=== PATIENT | male | born 1950 | race Caucasian/White ===

== ENCOUNTER → 2019-08-10 | Outpatient (CLI) | payer MEDICARE ==
[~2019-08-10] MED LIST: ACET500 PO; AMLO5 PO; ASPI325 PO; HYDACE5 PO; HYDCHL25 PO; IBUP800 PO; METO50 PO; OXYC5 PO; Simvastatin20 MG PO; Zestril40 MG PO
== END | disposition home or self-care (01) ==
LOC: LAB SHORT 13:14 → LAB 13:14
DX: B99.9 Unspecified infectious disease (principal)
CPT/HCPCS: 87070; 87075; 87076; 87205

== ENCOUNTER → 2024-05-14 | Outpatient (CLI) | payer MEDICARE ==
[~2024-05-14] MED LIST changes: +Acetaminophen325 M1 PO; +CIPR500 PO; +DOCU100 PO; +FERSU300 PO; +NERVE RENEW PO; +PROTONIX4010 PO; +VISBIOME 112.51 EACH PO; +Vitamin C500 M3 PO
[2024-05-14 18:29] LABS: Adenovirus F 40/41 Not Detected (NOT DETECT); Astrovirus Not Detected (NOT DETECT); Campylobacter Sp Not Detected (NOT DETECT); Cryptosporidium Not Detected (NOT DETECT); Cyclospora Cayetanensis Not Detected (NOT DETECT); E. Coli O157 Not Detected (NOT DETECT); Entamoeba Histolytica Not Detected (NOT DETECT); Enteroaggregative E. coli-EAEC Not Detected (NOT DETECT); Enteropathogenic E. coli-EPEC Not Detected (NOT DETECT); Enterotoxigenic E. coli-ETEC Not Detected (NOT DETECT); Giardia Lamblia Not Detected (NOT DETECT); Norovirus GI/GII Not Detected (NOT DETECT); Plesiomonas Shigelloides Not Detected (NOT DETECT); Rotavirus A Not Detected (NOT DETECT); Salmonella Sp Not Detected (NOT DETECT); Sapovirus Not Detected (NOT DETECT); Shiga Toxin-prod E. coli-STEC Not Detected (NOT DETECT); Shigella/Enteroin E. coli-EIEC Not Detected (NOT DETECT); Vibrio Cholerae Not Detected (NOT DETECT); Vibrio Sp Not Detected (NOT DETECT); Yersinia Enterocolitica Not Detected (NOT DETECT)
== END | disposition home or self-care (01) ==
LOC: LAB SHORT 15:13 → LAB 15:13
PROVIDERS: Nurse Practitioner Family
DX: R19.7 Diarrhea, unspecified (principal)
CPT/HCPCS: 87507

== ENCOUNTER → 2024-09-09 | Outpatient (CLI) | payer MEDICARE ==
[~2024-09-09] MED LIST changes: +MULVITA; +PREG25; +TAMS.4ER
[2024-09-09 16:44] LABS: BASOPHILS ABSOLUTE AUTO 0.09 K/mm3 (0.00-0.23); BASOPHILS PERCENT AUTO 1 % (0-2); EOSINOPHILS ABSOLUTE AUTO 1.24 K/mm3 (0.00-0.68); EOSINOPHILS PERCENT AUTO 13 % (0-6); Hematocrit 30.9 % (37.0-53.0); Hemoglobin 9.8 g/dL (13.5-17.5); IMMATURE GRAN ABSOLUTE AUTO 0.25 K/mm3 (0.00-0.10); IMMATURE GRAN PERCENT AUTO 3 % (0-1); LYMPHOCYTES ABSOLUTE AUTO 1.68 K/mm3 (0.84-5.20); LYMPHOCYTES PERCENT AUTO 18 % (21-46); MONOCYTES ABSOLUTE AUTO 0.85 K/mm3 (0.16-1.47); MONOCYTES PERCENT AUTO 9 % (4-13); Mean Corpuscular HGB Conc 31.7 g/dL (31.5-36.5); Mean Corpuscular Volume 101 fL (80-100); Mean Platelet Volume 10.7 fL (9.1-12.4); NEUTROPHILS ABSOLUTE AUTO 5.21 K/mm3 (1.96-9.15); NEUTROPHILS PERCENT AUTO 56 % (41-73); Platelet Count 289 K/mm3 (150-400); RDW Coefficient Variation 14.3 % (11.7-14.2); RDW Standard Deviation 52.1 fL (35.1-46.3); Red Blood Cell Count 3.06 M/mm3 (4.30-5.90); White Blood Cell Count 9.32 K/mm3 (4.00-11.30)
[2024-09-09 17:41] LABS: Percent Saturation 69.9 % (20.0-50.0)
== END | disposition home or self-care (01) ==
LOC: LAB 15:44 → LAB SHORT 15:44
PROVIDERS: Internal Medicine Hematology & Oncology
DX: E61.1 Iron deficiency (principal)
CPT/HCPCS: 82728; 83540; 83550; 85025

== ENCOUNTER 2024-11-04 11:30 | Inpatient (IN) | payer MEDICARE ==
[~2024-11-04] VITALS: Ht 180.3 cm; Wt 53.5 kg
[~2024-11-04 11:30] MED LIST changes: -MULVITA; +MULVITA PO; -PREG25; +PREG25 PO; -TAMS.4ER; +TAMS.4ER PO
[2024-11-04] MEDS ORDERED: NS 1,000 ML IV SCH ×2 (11:50→16:20)
[2024-11-04 13:00] LABS: BASOPHILS ABSOLUTE AUTO 0.04 K/mm3 (0.00-0.23); BASOPHILS PERCENT AUTO 1 % (0-2); Hematocrit 26.8 % (37.0-53.0); Hemoglobin 9.1 g/dL (13.5-17.5); LYMPHOCYTES ABSOLUTE AUTO 0.26 K/mm3 (0.84-5.20); LYMPHOCYTES PERCENT AUTO 4 % (21-46); MONOCYTES ABSOLUTE AUTO 0.37 K/mm3 (0.16-1.47); MONOCYTES PERCENT AUTO 5 % (4-13); Mean Corpuscular HGB 34.5 pg (26.0-34.0); Mean Corpuscular Volume 102 fL (80-100); Mean Platelet Volume 10.8 fL (9.1-12.4); NRBC ABSOLUTE 0.03 K/mm3 (0.00-0.02); NRBC Auto 0.4 /100 WBC (0.0-0.2); Platelet Count 246 K/mm3 (150-400); RDW Coefficient Variation 15.2 % (11.7-14.2); Red Blood Cell Count 2.64 M/mm3 (4.30-5.90); White Blood Cell Count 6.88 K/mm3 (4.00-11.30)
[2024-11-04 13:04] LABS: EOSINOPHILS ABSOLUTE AUTO 0.72 K/mm3 (0.00-0.68); EOSINOPHILS PERCENT AUTO 11 % (0-6); IMMATURE GRAN ABSOLUTE AUTO 0.19 K/mm3 (0.00-0.10); IMMATURE GRAN PERCENT AUTO 3 % (0-1); NEUTROPHILS PERCENT AUTO 77 % (41-73)
[2024-11-04 13:29] LABS: Magnesium, Blood 2.3 mg/dL (1.6-2.4)
[2024-11-04 13:43] LABS: Albumin, Blood 2.6 g/dL (3.4-5.0); Albumin/Globulin Ratio 0.7 (0.8-1.8); Bilirubin, Total 0.4 mg/dL (0.1-1.0); Calcium, Blood 13.8 mg/dL (8.5-10.1); Creatinine, Blood 2.04 mg/dL (0.60-1.20); Globulin, Blood 3.8 g/dL (2.2-4.0); Potassium, Blood 4.1 mmol/L (3.5-5.5); Total Protein, Blood 6.4 g/dL (6.4-8.2)
[2024-11-04] MEDS ORDERED: NS 1,000 ML IV ONE (15:46)
[2024-11-04] MEDS ORDERED: FLU VACC TS2024-25(6MOS UP)/PF 45 MCG/0.5 ML SYRINGE IM ONE (16:20)
[2024-11-04] MEDS ORDERED: Calcium Carbonate 500 MG Tab Chew PO PRN (17:35)
[2024-11-04] MEDS ORDERED: Ondansetron HCl 2 MG / ML 2ML Vial IV PRN (17:35)
[2024-11-04] MEDS ORDERED: TraMADol HCl 50 MG Tab PO PRN (17:35)
[2024-11-04 17:55] VITALS: BP 150/65
[2024-11-04] MEDS ORDERED: Polyethylene Glycol 3350 17 gm PO SCH (18:00)
[2024-11-04] MEDS ORDERED: Omeprazole 20 MG CapCR PO ONE (18:20)
--- NOTE | 2024-11-04 18:23 | NUR ---
NOTIFIED DR. ONEIL OF STAGE 2 PRESSURE ULCER TO COCCYX, PT C/O HEARTBURN, AND PT HAS CHRONIC INDWELLING DAVIS CATHETER MANAGED BY [facility]. PER PT HE DOES NOT HAVE SYMPTOMS OF BURNING, ABD PAIN, URGENCY, OR FEELING LIKE HE HAS A UTI. URINE IN BAG IS CLEAR YELLOW. PT DOES REPORT HI WAS TAUGHT HOW TO FLUSH CATHETER IF IT GETS CLOGGED. PER DR. OLIVEIRA, PLACE WOUND CARE ORDERS, OK TO CHANGE DAVIS CATHETER AND GIVE OMEPRAZOLE 40 MG PO NOW. ORDERS PROCESSED.
--- NOTE | 2024-11-04 18:49 | NUR ---
2 RN SKIN CHECK COMPLETED WITH LAURA BAEZ. SORE FOUND TO L INNER FOOT ON BALL OF FOOT. PT REPORTS IT IS FROM HIS SHOES. IT IS 0.5 CM BY 0.5 CM. NO DRAINAGE. WHITE PIN HEAD APPEARANCE SURROUNDED BY PINK SKIN. VIRGEN. STAGE TWO PRESSURE SORE TO COCCYX CLEANSED WITH WOUND CLEANSER AND PATTED DRY. PHOTOS TAKEN OF WOUNDS. APPLIED BARRIER CREAM TO COCCYX AND APPLIED MEPILEX. PT REPOSITIONED TO R SIDE WITH PILLOW. PT REPORTS HE HAS DIARRHEA AND REFUSED THE MIRALAX. OMEPRAZOLE GIVEN FOR HEARTBURN. PT ORIENTED TO CALL LIGHT, ROOM, FALL PRECAUTIONS. BED ALARM SET AND BED IN LOW POSITION.
[2024-11-04 19:10] VITALS: BP 149/73
[2024-11-04] MEDS ORDERED: Colace100 MG PO (19:51)
[2024-11-04] MEDS ORDERED: PANT40 PO (19:52)
[2024-11-04 22:54] LABS: Source, Urine Foley catheter
[2024-11-04 23:40] LABS: Bilirubin, Urine Neg (Neg); Blood, Urine 5+ (Neg); Glucose Qualitative, Urine Neg (Neg); Ketones, Urine Neg (Neg); Leukocyte Esterase, Urine 3+ (Neg); Nitrite, Urine Neg (Neg); Protein, Urine 3+ (Neg); Specific Gravity, Urine 1.015 (1.003-1.022); Urobilinogen, Urine NORM (Normal)
[2024-11-04 23:49] LABS: Appearance, Urine Hazy (Clear); Color, Urine Yellow (P-Yellow)
[2024-11-04 23:50] LABS: Bacteria Many /hpf; Red Blood Cells, Urine 50-100 /hpf (0-2); Squamous Epithelial Cells Mod /hpf (Few); White Blood Cells, Urine 25-50 /hpf (0-5)
[2024-11-05 03:28] VITALS: BP 136/68
[2024-11-05 05:58] LABS: Hemoglobin 7.5 g/dL (13.5-17.5); Mean Corpuscular HGB 34.2 pg (26.0-34.0); Mean Corpuscular HGB Conc 32.6 g/dL (31.5-36.5); Mean Corpuscular Volume 105 fL (80-100); Mean Platelet Volume 10.9 fL (9.1-12.4); NRBC ABSOLUTE 0.04 K/mm3 (0.00-0.02); NRBC Auto 0.5 /100 WBC (0.0-0.2); Platelet Count 223 K/mm3 (150-400); RDW Coefficient Variation 15.4 % (11.7-14.2); RDW Standard Deviation 54.4 fL (35.1-46.3); Red Blood Cell Count 2.19 M/mm3 (4.30-5.90); White Blood Cell Count 7.39 K/mm3 (4.00-11.30)
[2024-11-05] MEDS ORDERED: Omeprazole 20 MG CapCR PO SCH (06:00)
[2024-11-05 06:27] LABS: Albumin/Globulin Ratio 0.7 (0.8-1.8); Bilirubin, Total 0.4 mg/dL (0.1-1.0); Bun/Creatinine Ratio 52.4 (12.0-20.0); Calcium, Blood 10.5 mg/dL (8.5-10.1); Creatinine, Blood 1.7 mg/dL (0.60-1.20); Globulin, Blood 2.9 g/dL (2.2-4.0); Potassium, Blood 3.5 mmol/L (3.5-5.5); Total Protein, Blood 4.9 g/dL (6.4-8.2)
--- NOTE | 2024-11-05 06:29 | NUR ---
REC'D PT @ SHIFT CHANGE FROM ER. ORIENTED TO ROOM AND CALL LIGHT SYSTEM. AAOX4, USES CALL LIGHT FOR NEEDS. CHRONIC DAVIS CATH CHANGED, UA SAMPLE SENT TO LAB. NUMEROUS, SOFT, DARK INCONTINENT BMS. STAGE 2 COCCYX, COVERED WITH MEPILEX AND R FOOT MEDIAL BELOW GT TOE HAS REDNESS AND PINPOINT OPENING, BANDAID WITH ADAPTIC CDI. PICTURES ARE IN CHART.
[2024-11-05 07:25] VITALS: BP 131/76
[2024-11-05] MEDS ORDERED: Enoxaparin 30 MG/0.3 ML SYR SC SCH (09:00)
[2024-11-05] MEDS ORDERED: TRAM50 PO (09:54)
[2024-11-05] MEDS ORDERED: Acetaminophen 325 MG TABLET PO PRN (10:15)
[2024-11-05] MEDS ORDERED: Loperamide HCl 2 MG Cap PO PRN (10:15)
--- NOTE | 2024-11-05 10:47 | NUR ---
AM NOTE: PATIENT ALERT AND ORIENTED X4. AT BEDSIDE THIS AM AND ABLE TO HELP THIS RN COMPLETE HOME MED REC. PATIENT ABLE TO HELP TURN IN BED ALTHOUGH LIMITED ROM IN BILATERAL HIPS/LEGS. PT/OT ORDERS IN PLACE. Q2 TURNING AND NEEDED. NO TELE. DENIES CHEST PAIN/PRESSURE/PALPITATIONS. IV FLUIDS INFUSING PER EMAR. PPP. NO EDEMA NOTED. VITAL SIGNS STABLE. ON ROOM AIR. LUNGS SOUNDS CLEAR AND DIM IN BASES. EVEN AND UNLABORED RESPIRTAIONS. DENIES SOB/COUGH. BOWEL TONES PRESENT. PATIENT IS IN CURRENT TREATMENT FOR RECTAL CANCER. FREQUENT LOOSE STOOLS THROUGHOUT THE NIGHT AND THIS AM. AM MIRALAX HELD. STOOLS DARK BLACK AND STICKY. DR. OLIVEIRA AWARE AND STOOL SAMPLE SENT TO LAB. DENIES ABDOMINAL PAIN/NAUSEA. DRINKING WATER. TOLERATING PO DIET. METALS ANALYST TO BEDSIDE THIS AM. SKIN OVERALL PALE WITH SCATTERED BRUISING. STAGE 2 PRESSURE ULCER TO COCCYX AND LEFT MEDIAL BIG TOE. SEE CHART PHOTOS. DRESSINGS CHANGED THIS AM AND PRN WITH BOWEL MOVEMENTS. PHYISCAL THERAPY IN ROOM AT THIS TIME. CALL LIGHT IN REACH.
[2024-11-05] MEDS ORDERED: IMODIUM A-D2 M1 PO (12:54)
[2024-11-05] MEDS ORDERED: IBUP200 PO (12:54)
[2024-11-05] MEDS ORDERED: PREG25 PO (12:55)
[2024-11-05 13:15] LABS: Hematocrit 24.1 % (37.0-53.0); Hemoglobin 8.1 g/dL (13.5-17.5)
[2024-11-05 13:49] LABS: Bun/Creatinine Ratio 52.2 (12.0-20.0); Calcium, Blood 9.5 mg/dL (8.5-10.1); Creatinine, Blood 1.59 mg/dL (0.60-1.20); Potassium, Blood 3.3 mmol/L (3.5-5.5)
[2024-11-05] MEDS ORDERED: Protein Supplement 30 ML UD PO SCH (14:00)
[2024-11-05 14:57] VITALS: BP 124/73
[2024-11-05 15:39] LABS: Stool Occult Bld Immuno 1 Positive (NEGATIVE)
[2024-11-05] MEDS ORDERED: Polyethylene Glycol 3350 17 gm PO PRN (16:45)
[2024-11-05] MEDS ORDERED: Potassium Chloride 40 MEQ in NS 250 ML IV ONE (16:55)
[2024-11-05] MEDS ORDERED: NS 250 ML IV PRN (17:10)
[2024-11-05] MEDS ORDERED: Sod Ferric Gluc Complx/Sucrose 125 MG in NS 100 ML IV SCH (18:00)
--- NOTE | 2024-11-05 18:37 | NUR ---
PT ALERT AND ORIENTED, VSS, RA. ON TREATMENT FOR RECTAL CANCER, FREQUENT LOOSE BROWN STOOLS FOR ENTIRE SHIFT, MD AWARE, IMMODIUM GIVEN X2. PT PAIN CONTROLLED WITH TYLENOL X1. HGB INCREASED FROM 7.5-8.1 THIS AFTERNOON. SCROTUM AND PERIANAL RED FROM FREQUENT STOOL, BARRIER CREAM IN PLACE. CALL LIGHT IN REACH, PT NOW RESTING COMFORTABLY.
[2024-11-05 19:56] VITALS: BP 142/79
[2024-11-05] MEDS ORDERED: Arginine/Glutamine/Calcium Hmb 1 Packet PO SCH (21:00)
[2024-11-05] MEDS ORDERED: Dextrose 50% 50 ML Syringe IV ONE (23:10)
[2024-11-05] MEDS ORDERED: Sodium Bicarb 8.4% 50 mEq Syringe IV ONE (23:10)
[2024-11-05] MEDS ORDERED: EPINEPhrine HCl 0.1 MG/ML 10ML SYR IV ONE (23:10)
[2024-11-06 02:20] VITALS: BP 119/68
[2024-11-06 05:04] LABS: Hematocrit 28.7 % (37.0-53.0); Hemoglobin 9.4 g/dL (13.5-17.5)
--- NOTE | 2024-11-06 05:26 | NUR ---
AAO X3, USES CALL LIGHT MOSTLY, SOMETIMES YELLS FOR HELP. CHAIRFAST, WITH MAX ASSIST MULTIPLE BROWN LOOSE STOOLS.PT DID NOT SLEEP MUCH D/T CHANGING BRIEFS. SCTOTTUM IS BRIGHT RED AND ULCER ON COCCYX IS RED WITH PEELING SKIN, BARRIER CREAM APPLIED. UNABLE TO KEEP DRESSING CLEAN FROM BM FOR COCCYX.
[2024-11-06 05:50] LABS: Albumin, Blood 1.8 g/dL (3.4-5.0); Anion Gap 11 mmol/L (3-11); Blood Urea Nitrogen 94 mg/dL (8-24); Bun/Creatinine Ratio 47.2 (12.0-20.0); CO2, Blood 18 mmol/L (21-32); Chloride, Blood 119 mmol/L (98-108); Creatinine, Blood 1.99 mg/dL (0.60-1.20); Glomerular Filtration Rate 35 (60-); Glucose, Blood 152 mg/dL (70-99); Phosphorus, Blood 2.4 mg/dL (2.5-4.9); Potassium, Blood 3.7 mmol/L (3.5-5.5); Sodium, Blood 144 mmol/L (136-145)
[2024-11-06 07:21] VITALS: BP 122/78
[2024-11-06] MEDS ORDERED: TraMADol HCl 50 MG Tab PO PRN (08:35)
[2024-11-06] MEDS ORDERED: Thiamine HCl 100 MG Tab PO SCH (09:00)
[2024-11-06 11:18] LABS: Adenovirus F 40/41 Not Detected (NOT DETECT); Astrovirus Not Detected (NOT DETECT); Campylobacter Sp Not Detected (NOT DETECT); Cryptosporidium Not Detected (NOT DETECT); Cyclospora Cayetanensis Not Detected (NOT DETECT); E. Coli O157 Not Detected (NOT DETECT); Entamoeba Histolytica Not Detected (NOT DETECT); Enteroaggregative E. coli-EAEC Not Detected (NOT DETECT); Enteropathogenic E. coli-EPEC Not Detected (NOT DETECT); Enterotoxigenic E. coli-ETEC Not Detected (NOT DETECT); Giardia Lamblia Not Detected (NOT DETECT); Norovirus GI/GII Not Detected (NOT DETECT); Plesiomonas Shigelloides Not Detected (NOT DETECT); Rotavirus A Not Detected (NOT DETECT); Salmonella Sp Not Detected (NOT DETECT); Sapovirus Not Detected (NOT DETECT); Shiga Toxin-prod E. coli-STEC Not Detected (NOT DETECT); Shigella/Enteroin E. coli-EIEC Not Detected (NOT DETECT); Vibrio Cholerae Not Detected (NOT DETECT); Vibrio Sp Not Detected (NOT DETECT); Yersinia Enterocolitica Not Detected (NOT DETECT)
[2024-11-06] MEDS ORDERED: Lactated Ringer's 1,000 ML IV SCH (14:40)
[2024-11-06 15:37] VITALS: BP 130/111
[2024-11-06 19:37] VITALS: BP 59/41
[2024-11-06 20:15] VITALS: BP 136/74
[2024-11-07] VITALS (13 sets, daily range): BP systolic 48–131; BP diastolic 18–70
[2024-11-07] MEDS ORDERED: Dextrose 50% 50 ML Syringe IV PRN (04:35)
[2024-11-07] MEDS ORDERED: Dextrose 50% 50 ML Vial IV ONE (04:35)
[2024-11-07] MEDS ORDERED: Dextrose 10% 1,000 ML IV SCH (04:45)
[2024-11-07] MEDS ORDERED: Dextrose 50% 50 ML Vial ONE ×2 (04:49→05:04)
[2024-11-07] MEDS ORDERED: Vasopressin 20 UNITS in NS 100 ML IV SCH (05:35)
--- NOTE | 2024-11-07 06:25 | NUR ---
After responding to a call-back, I attempted to visit with the patient's spouse. Patient TOD of 0558 is minutes before I arrived 0615. Patient's spouse exited the building before I had a chance to meet her. I still procceeded into the patient's room and said a prayer for him and his spouse. I will continue to remain available to patient and family for bereavement support.
--- NOTE | 2024-11-07 06:58 | NUR ---
[id number] [employer]ENSIC SCIENCE EXAMINER CALLED TO 305. PT WAS UNRESPONSIVE TO PAINFUL STIMULI. RESP RATE 20. BP 76/64 MAP 69, HEART RATE 125 PER MONITOR. BLOOD GLUCOSE 21, 3 1/2 AMP D50 GIVEN AND NS BOLUS WIDE OPEN STARTED. TRANSFERED DOWN TO ICU 04 AT 0449. [id number] CODE CALL DUE TO PT IN PEA AND NOT BREATHING. RT STARTED BAGGING PT. CPR STARTED. PT RECEIVED 6 AMPS EPI, 1 1/2 AMP D50, 1 AMP NA BICARB AND 500ML D10 PRESSURED BAGGED IN. PT WAS STARTED ON LEVOPHED AT 50MCQ, VASOPRESSIN AT 0.004 UNITS, AND EPI GTT AT 50 MCQ. OBTAINED PULSE AND BP. 0530 DR AVENDAÑO PLACING CENTRAL LINE. AT BEDSIDE. PT CHANGED TO DNR PER KOLBY. 2458 TOGuerda
== END 2024-11-07 05:58 | DRG 393 ==
LOC: ER 11:30 → MEDS 11:31 → ICUE 11-07 04:44
PROVIDERS: Nurse Practitioner Acute Care; Physician Assistant; ADMIT Internal Medicine
PROC: 5A12012 Performance of Cardiac Output, Single, Manual (ICD-10-PCS; principal; 2024-11-04)
PROC: 0T9B70Z Drainage of Bladder with Drainage Device, Via Natural or Artificial Opening (ICD-10-PCS; 2024-11-04)
PROC: 3E033XZ Introduction of Vasopressor into Peripheral Vein, Percutaneous Approach (ICD-10-PCS; 2024-11-07)
DX: K52.1 Toxic gastroenteritis and colitis (principal); E43 Unspecified severe protein-calorie malnutrition; C64.9 Malignant neoplasm of unspecified kidney, except renal pelvis; N39.0 Urinary tract infection, site not specified; N13.8 Other obstructive and reflux uropathy; N17.9 Acute kidney failure, unspecified; R64 Cachexia; C18.9 Malignant neoplasm of colon, unspecified; Z68.1 Body mass index [BMI] 19.9 or less, adult; C20 Malignant neoplasm of rectum; T45.1X5A Adverse effect of antineoplastic and immunosuppressive drugs, initial encounter; E83.52 Hypercalcemia; Z51.5 Encounter for palliative care; Z66 Do not resuscitate; B96.1 Klebsiella pneumoniae [K. pneumoniae] as the cause of diseases classified elsewhere; I49.01 Ventricular fibrillation; I46.2 Cardiac arrest due to underlying cardiac condition; E78.5 Hyperlipidemia, unspecified; I10 Essential (primary) hypertension; M19.90 Unspecified osteoarthritis, unspecified site; G89.29 Other chronic pain; L89.152 Pressure ulcer of sacral region, stage 2; D50.9 Iron deficiency anemia, unspecified; N40.1 Benign prostatic hyperplasia with lower urinary tract symptoms; K21.9 Gastro-esophageal reflux disease without esophagitis; Z87.81 Personal history of (healed) traumatic fracture; Z98.890 Other specified postprocedural states; Z79.899 Other long term (current) drug therapy
CPT/HCPCS: 36415; 36556; 51702; 80048; 80053; 80069; 81001; 82274; 82306; 82330; 82378; 82652; 82947; 83735; 83970; 84100; 85014; 85018; 85025; 85027; 87077; 87086; 87186; 87507; 92950; 93005; 93010; 94002; 96360; 96361; 96365; 96372; 96375; 97110; 97162; 97165; 97530; 99284-25; A9270; C1751; G0378; J0171; J1650; J2405; J2916; J3480; J7030; J7050; J7060; J7120; J7799